=== PATIENT | male | born 1980 | race African-American/Black ===

== ENCOUNTER 2020-04-02 16:10 | Emergency (ER) | payer OTHER, SELFPAY ==
[2020-04-02 16:12] VITALS: BP 100/76; PULSE 98; RESP 20; TEMP 36.8; O2SAT 98
[2020-04-02] MEDS: BELLADONNA ALK/PHENOB ELIX 10 ML, MAG HYDROX/ALUMINUM HYD/SIMETH 30 ML, LIDOCAINE HCL 2... PO (16:36)
[2020-04-02 16:42] LABS: Basophils Absolute Auto 0.1 K/mm3 (0.0-0.1); Eosinophils Absolute Auto 0.3 K/mm3 (0-0.3); Eosinophils Percent Auto 5.7 % (0-4.4); Hemoglobin 14.3 g/dL (14.0-18.0); Immature Granulocyte Absolute 0.01 K/mm3 (0.00-0.031); Immature Granulocyte Percent A 0.2 % (0-0.5); Lymphocytes Absolute Auto 2.03 K/mm3 (0.9-3.2); Lymphocytes Percent Auto 39.6 % (18.3-44.2); Mean Corpuscular Hemoglobin 32.5 pg (26-34); Mean Corpuscular Volume 95.5 fl (80-100); Mean Platelet Volume 8.9 fl (7.4-10.4); Monocytes Absolute Auto 0.4 K/mm3 (0.1-0.6); Monocytes Percent Auto 6.8 % (2.6-8.5); Neutrophils Absolute Auto 2.4 K/mm3 (1.3-6.7); Neutrophils Percent Auto 46.7 % (45.5-73.1); Platelet Count Result 261 k/mm3 (150-375); Red Cell Distribution Width 12.3 % (11.5-14.5); White Blood Count 5.1 K/mm3 (4.5-10.0)
[2020-04-02 16:51] LABS: Alanine Aminotransferase 53 U/L (4-50); Albumin Level 4.4 g/dL (3.5-5.1); Alkaline Phosphatase 54 U/L (38-126); Aspartate Amino Transferase 99 U/L (17-59); Bilirubin,Total 0.7 mg/dL (0.2-1.3); Blood Urea Nitrogen 13 mg/dL (9-20); Calcium 9.2 mg/dL (8.4-10.2); Carbon Dioxide 26 mmol/L (22-30); Chloride 102 mmol/L (98-107); Estimated CRCL calculation 114 ml/min; Estimated Glomerular Filt Rate > 60; Glucose 121 mg/dL (75-110); Lipase 172 U/L (23-300); Potassium 3.7 mmol/L (3.4-5.0); Sodium 135 mmol/L (137-145)
--- NOTE | 2020-04-02 17:35 | ED.ABDPAIN ---
HPI - Abdominal Pain General Chief Complaint: Abdominal Pain Stated Complaint: abd pain with nausea. Time Seen by Provider: 04/02/20 16:16 History of Present Illness HPI narrative: Patient is a 40-year-old male who presents ER with epigastric abdominal discomfort. Ongoing for 2 days. Has some reflux going up into the back of his mouth and occasionally spitting up clear fluid. No fevers or chills or sweats. No alleviating factors that he is noted. Has not had similar symptoms before. Food is not getting stuck when he swallows. Related Data Home Medications Medication Instructions Recorded Confirmed No Home Medications 04/02/20 04/02/20 Allergies Allergy/AdvReac Type Severity Reaction Status Date / Time No Known Allergies Allergy Verified 04/02/20 16:14 Review of Systems Review of Systems: All systems reviewed & are unremarkable except as noted in HPI and below Constitutional: Constitutional: Denies chills, Denies fever(s) and Denies weakness ENT: Denies nasal congestion and Denies sore throat Cardiovascular: Cardiovascular: Denies chest pain and Denies rapid heart rate Respiratory: Respiratory: Denies cough, Denies dyspnea and Denies wheezing Gastrointestinal: Gastrointestinal: Reports abdominal pain, Denies constipation, Reports heartburn, Denies diarrhea, Reports nausea and Reports vomiting PMFSH Past Medical History Medical History (Updated 04/02/20 @ 17:46 by Reji Collier MD) No pertinent past medical history Surgical History Surgical History (Updated 04/02/20 @ 17:38 by Reji Clolier MD) H/O thumb surgery Social History Social History (Updated 04/02/20 @ 17:43 by Reji Collier MD) Smoking status: Never smoker Alcohol intake: current Exam Narrative: Exam Narrative: GENERAL: Well-appearing, well-nourished, and in no acute distress. HEAD: Normocephalic, atraumatic. ENT: Mucous membranes moist. CHEST: Clear to auscultation. No respiratory distress. HEART: Regular rate and rhythm. Normal peripheral pulses. ABDOMEN: Soft, nontender, nondistended. EXTREMITIES: Normal range of motion. No edema. SKIN: Warm, dry, no rash. NEURO: Alert and oriented x3. Course Course Emergency Course: Patient informed of results. Symptoms improving with GI cocktail. Discussed liver function test elevation discussed that may represent alcoholic hepatitis. He has had some modest drinking recently with his birthday and Father's Day having occurred. Discussed alcohol cessation. Vital Signs Vital signs: Vital Signs Temperature 98.2 F 04/02/20 16:12 Pulse Rate 98 04/02/20 16:12 Respiratory Rate 20 04/02/20 16:12 Blood Pressure 100/76 04/02/20 16:12 Pulse Oximetry 98 04/02/20 16:12 Temperature 98.2 F 04/02/20 16:12 Pulse Rate 98 04/02/20 16:12 Respiratory Rate 20 04/02/20 16:12 Blood Pressure 100/76 04/02/20 16:12 Pulse Oximetry 98 04/02/20 16:12 MDM - Abdominal Pain Lab Data Result diagrams: 04/02/20 16:37 04/02/20 16:37 Labs: Lab Results 04/02/20 04/02/20 Range/Units 16:37 16:37 WBC 5.1 (4.5-10.0) K/mm3 RBC 4.40 L (4.6-6.20) M/mm3 Hgb 14.3 (14.0-18.0) g/dL Hct 42.0 (42.0-52.0) % MCV 95.5 (80-100) fl MCH 32.5 (26-34) pg MCHC 34.0 (32-36) g/dl RDW 12.3 (11.5-14.5) % Plt Count 261 (150-375) k/mm3 MPV 8.9 (7.4-10.4) fl Immature Gran % (Auto) 0.2 (0-0.5) % Neut % (Auto) 46.7 (45.5-73.1) % Lymph % (Auto) 39.6 (18.3-44.2) % Tama % (Auto) 6.8 (2.6-8.5) % Eos % (Auto) 5.7 H (0-4.4) % Baso % (Auto) 1.0 (0.2-1.2) % Lymph # (Auto) 2.03 (0.9-3.2) K/mm3 Tama # (Auto) 0.4 (0.1-0.6) K/mm3 Eos # (Auto) 0.3 (0-0.3) K/mm3 Baso # (Auto) 0.1 (0.0-0.1) K/mm3 Abs Immat Gran (auto) 0.01 (0.00-0.031) K/mm3 Absolute Neuts (auto) 2.4 (1.3-6.7) K/mm3 Absolute Nucleated RBC 0.0 (0.0-0.012) K/mm3 Nucleated RBC % 0.0 (0.0-0.2) %
== END 2020-04-02 18:15 | disposition home or self-care (01) ==
PROVIDERS: Emergency Provider Emergency Medicine
DX: K21.9 Gastro-esophageal reflux disease without esophagitis (principal); K70.10 Alcoholic hepatitis without ascites
CPT/HCPCS: 36415; 80053; 83690; 85025; 99283; A9270